=== PATIENT | male | born 1960 | race Caucasian/White ===

== ENCOUNTER 2019-11-23 15:54 | Emergency (ER) | payer MEDICARE, OTHER ==
[~2019-11-23] VITALS: Ht 185.4 cm; Wt 102.1 kg
[~2019-11-23 15:54] MED LIST: ATEN50TA PO; HYDR-3974 PO; LEVO500T2 PO; METR500T PO; PANT40SU PO
--- NOTE | 2019-11-23 16:18 | NUR ---
PT CLARISSA OSEI HOME TO ER BED W/ MULTIPLE COMPLAINTS. PER EMS PT CALLED 911 C/O CHEST PAIN W/ COUGH. ABDOMINAL PAIN W/ NAUSEA SINCE THIS MORNING. PLACED ON MONITOR. VSS. AWAITING MD CRUZ.
--- NOTE | 2019-11-23 16:19 | NUR ---
DR MEZA AT BEDSIDE FOR EVAL.
--- NOTE | 2019-11-23 16:20 | NUR ---
IV LINE STARTED BLOOD DRAWN AND SENT TO LAB.
[2019-11-23 16:28] LABS: BASOPHILS % (AUTO) 0.4 % (0.0-2.0); EOSINOPHILS % (AUTO) 0.1 % (0.0-6.0); HEMATOCRIT 49 % (39-51); HEMOGLOBIN 16.6 g/dL (13.5-17.5); LYMPHOCYTES % (AUTO) 8.8 % (20.0-44.0); MEAN CORPUSCULAR HGB CONC 34 g/dl (31.0-36.0); MEAN CORPUSCULAR VOLUME 93 fL (80-96); MONOCYTES # (AUTO) 0.5 /CMM (0.1-1.30); MONOCYTES % (AUTO) 4.2 % (2.0-12.0); NEUTROPHILS # (AUTO) 9.5 /CMM (1.8-8.9); NEUTROPHILS % (AUTO) 86.5 % (43.0-81.0); PLATELET COUNT (AUTO) 194 /CMM (150-450); RED BLOOD CELL COUNT(AUTO) 5.24 MIL/uL (4.5-6.0)
--- NOTE | 2019-11-23 16:28 | NUR ---
RADIOLOGY AT BEDSIDE FOR CHEST XRAY.
[2019-11-23] MEDS ORDERED: IV NS 0.9% 1,000 ML BAG IV ONE (16:30)
[2019-11-23] MEDS ORDERED: KETOROLAC TROMETHAMINE INJ 30 MG/ML VIAL IV ONE (16:30)
[2019-11-23] MEDS ORDERED: ONDANSETRON HCL/PF 4 MG/2 ML VIAL IVP ONE (16:30)
[2019-11-23] MEDS ORDERED: KETOROLAC TROMETHAMINE 15 MG/ML VIAL ONE (16:32)
[2019-11-23] MEDS ORDERED: ONDANSETRON HCL/PF 4 MG/2 ML VIAL ONE (16:33)
[2019-11-23 16:59] LABS: CALCIUM, SERUM 9.7 mg/dL (8.5-10.1); CARBON DIOXIDE 25 mmol/L (21-32); CHLORIDE 107 mmol/L (98-107); CREATININE 1.1 mg/dL (0.6-1.3); GLUCOSE 105 mg/dL (74-106); POTASSIUM 4.3 mmol/L (3.5-5.1); SODIUM SERUM 143 mmol/L (136-145); UREA NITROGEN, BLOOD 19 mg/dL (7-18)
[2019-11-23 17:05] LABS: ALANINE AMINOTRANSFERASE 36 U/L (12-78); ALKALINE PHOSPHATASE 132 U/L (46-116); ASPARTATE AMINOTRANSFERASE 29 U/L (15-37); BILIRUBIN,DIRECT 0.2 mg/dL (0.0-0.2); BILIRUBIN,TOTAL 1.2 mg/dL (0.2-1.0); TOTAL PROTEIN, SERUM 8.1 g/dL (6.4-8.2)
[2019-11-23 17:19] LABS: LIPASE 181 U/L (73-393)
--- NOTE | 2019-11-23 17:54 | NUR ---
PT TO RADIOLOGY FOR HEAD CT SCAN VIA [facility].
[2019-11-23] MEDS ORDERED: oxyCODONE/APAP (5/325 MG) 1 UDTAB TABLET ONE (17:57)
[2019-11-23] MEDS ORDERED: oxyCODONE/APAP (5/325 MG) 1 UDTAB TABLET PO ONE (18:00)
[2019-11-23 18:47] VITALS: BP 132/84
--- NOTE | 2019-11-23 18:47 | NUR ---
Patient discharged to home in stable condition. Written and verbal after care instructions given. Patient verbalizes understanding of instruction.IV removed. Catheter intact and site benign. Pressure and 4x4 applied to site. No bleeding noted.
[2019-11-24] MEDS ORDERED: ATOR10TA PO (11:23)
== END 2019-11-23 18:48 | disposition home or self-care (01) ==
LOC: ER 15:55
DX: J06.9 Acute upper respiratory infection, unspecified (principal); R51 Headache; I10 Essential (primary) hypertension; K21.9 Gastro-esophageal reflux disease without esophagitis; Z79.899 Other long term (current) drug therapy
CPT/HCPCS: 36415; 70450; 71045; 80048; 80076; 83690; 84484; 85025; 93005; 96374; 96375; 99285; J1885; J2405; J7030

== ENCOUNTER 2019-11-24 10:51 | Emergency (ER) | payer MEDICARE, OTHER ==
[~2019-11-24] VITALS: Ht 180.3 cm; Wt 97.5 kg
--- NOTE | 2019-11-24 10:54 | NUR ---
PARISA RA 860 From Home Cough/Nausea/vomit/diarrhea was seen yesterday for same" to ER bed 2, hooked to monitor, changed to hospital gown, provided w warm blanket, patient ao x 4, breathing even and unlabored, Dr Perrin at bedside
[2019-11-24] MEDS ORDERED: ONDANSETRON HCL/PF 4 MG/2 ML VIAL ONE (11:07)
[2019-11-24] MEDS ORDERED: ATOR10TA PO (11:23)
[2019-11-24] MEDS ORDERED: ONDANSETRON HCL/PF 4 MG/2 ML VIAL IVP ONE (11:30)
[2019-11-24] MEDS ORDERED: IV NS 0.9% 1,000 ML BAG IV ONE (11:30)
[2019-11-24 11:39] LABS: BASOPHILS % (AUTO) 0.2 % (0.0-2.0); EOSINOPHILS % (AUTO) 0.2 % (0.0-6.0); HEMATOCRIT 46 % (39-51); HEMOGLOBIN 15.7 g/dL (13.5-17.5); LYMPHOCYTES # (AUTO) 1.3 /CMM (0.8-4.8); LYMPHOCYTES % (AUTO) 17.2 % (20.0-44.0); MEAN CORPUSCULAR HGB CONC 34 g/dl (31.0-36.0); MEAN CORPUSCULAR VOLUME 93 fL (80-96); MONOCYTES # (AUTO) 0.7 /CMM (0.1-1.30); MONOCYTES % (AUTO) 8.9 % (2.0-12.0); NEUTROPHILS # (AUTO) 5.6 /CMM (1.8-8.9); NEUTROPHILS % (AUTO) 73.5 % (43.0-81.0); PLATELET COUNT (AUTO) 207 /CMM (150-450); RED BLOOD CELL COUNT(AUTO) 4.98 MIL/uL (4.5-6.0); WHITE BLOOD COUNT (AUTO) 7.7 K/uL (4.3-11.0)
[2019-11-24 11:51] LABS: ALBUMIN 3.6 g/dL (3.4-5.0); BILIRUBIN,DIRECT 0.3 mg/dL (0.0-0.2); BILIRUBIN,TOTAL 1.5 mg/dL (0.2-1.0); CALCIUM, SERUM 9.4 mg/dL (8.5-10.1); CREATININE 1.3 mg/dL (0.6-1.3); POTASSIUM 4.2 mmol/L (3.5-5.1); TOTAL PROTEIN, SERUM 7.7 g/dL (6.4-8.2)
--- NOTE | 2019-11-24 12:16 | NUR ---
patient ambulated with steady gait going to restroom.
--- NOTE | 2019-11-24 13:31 | NUR ---
IV removed. Catheter intact and site benign. Pressure and 4x4 applied to site. No bleeding noted.Patient discharged to home in stable condition. Written and verbal after care instructions given. Patient verbalizes understanding of instruction.
[2019-11-24 13:32] VITALS: BP 132/74
== END 2019-11-24 13:32 | disposition home or self-care (01) ==
LOC: ER 10:53
DX: R11.2 Nausea with vomiting, unspecified (principal); R19.7 Diarrhea, unspecified; R51 Headache; I10 Essential (primary) hypertension; Z60.2 Problems related to living alone; Z79.899 Other long term (current) drug therapy
CPT/HCPCS: 36415; 74176; 80048; 80076; 83690; 85025; 96361; 96374; 99284; J2405; J7030

== ENCOUNTER 2019-11-25 07:32 | Inpatient (IN) | payer MEDICARE, OTHER ==
[~2019-11-25] VITALS: Ht 188 cm; Wt 104.3 kg
[~2019-11-25 07:32] MED LIST changes: +ATOR10TA PO; -HYDR-3974 PO; -LEVO500T2 PO; -METR500T PO; -PANT40SU PO
--- NOTE | 2019-11-25 07:49 | NUR ---
DR DOMINGUEZ AT BEDSIDE FOR EVAL.
[2019-11-25] MEDS ORDERED: IV NS 0.9% 500 ML BAG IV ONE (08:00)
--- NOTE | 2019-11-25 08:11 | NUR ---
LINE STARTED ON R FA G 20, BLOOD AND CULTURES DRAWN FROM LINE AND SENT TO LAB
--- NOTE | 2019-11-25 08:18 | NUR ---
RADIOLOGY AT BEDSIDE FOR CHEST XRAY.
[2019-11-25 08:55] LABS: BASOPHILS % (AUTO) 0.5 % (0.0-2.0); EOSINOPHILS % (AUTO) 0.4 % (0.0-6.0); HEMATOCRIT 45 % (39-51); HEMOGLOBIN 15.1 g/dL (13.5-17.5); LYMPHOCYTES # (AUTO) 1.2 /CMM (0.8-4.8); LYMPHOCYTES % (AUTO) 18.2 % (20.0-44.0); MEAN CORPUSCULAR HGB CONC 34 g/dl (31.0-36.0); MEAN CORPUSCULAR VOLUME 93 fL (80-96); MONOCYTES # (AUTO) 0.5 /CMM (0.1-1.30); MONOCYTES % (AUTO) 7.9 % (2.0-12.0); NEUTROPHILS # (AUTO) 4.9 /CMM (1.8-8.9); PLATELET COUNT (AUTO) 191 /CMM (150-450); RED BLOOD CELL COUNT(AUTO) 4.78 MIL/uL (4.5-6.0); WHITE BLOOD COUNT (AUTO) 6.7 K/uL (4.3-11.0)
[2019-11-25 09:03] LABS: CALCIUM, SERUM 8.7 mg/dL (8.5-10.1); POTASSIUM 4.1 mmol/L (3.5-5.1)
--- NOTE | 2019-11-25 09:15 | NUR ---
PAGED [facility].
--- NOTE | 2019-11-25 09:42 | NUR ---
CALLED NURSING SUP FOR M/S BED.
--- NOTE | 2019-11-25 09:45 | NUR ---
PT GAVE CAREGIVER YESSI #[phone].
--- NOTE | 2019-11-25 09:57 | NUR ---
NURSING SUP GAVE M/S BED 106. NURSE NAME CRISTY.
--- NOTE | 2019-11-25 10:12 | NUR ---
REPORT GIVEN TO CRISTY KOVACS. AWAITING TRANSFER TO FLOOR.
[2019-11-25] MEDS ORDERED: IV 1/2NS 1000 ML 1,000 ML IV PRN (10:30)
[2019-11-25] MEDS ORDERED: ONDANSETRON HCL/PF 4 MG/2 ML VIAL IM PRN (10:30)
[2019-11-25 12:00] VITALS: BP 124/78
[2019-11-25 12:41] LABS: CREATINE KINASE, TOTAL 142 U/L (39-308); FERRITIN 465 ng/mL (8-388)
[2019-11-25 12:56] LABS: C-REACTIVE PROTEIN 1.3 mg/dL (0.0-0.9)
--- NOTE | 2019-11-25 13:00 | NUR ---
RN ADMITTING NOTE: RECEIVED PATIENT FROM ER THIS MORNING AT 1140. PATIENT CAME IN WITH C/O SEVERE NAUSEA AND COUGH FOR 1.5 MONTHS. UPON FACE TO FACE ASSESSMENT, PATIENT IS ALERT AND ORIENTED X4, RESPONDS APPROPRIATELY. PATIENT ON ROOM AIR, SATING 98%, NO SIGNS OF RESPIRATORY DISTRESS NOTED. NO SIGNS OF ACUTE DISTRESS NOTED. VSS. LUNGS CLEAR TO AUSCULTATION IN ALL LOBES. NO EDEMA PRESENT. NO COMPLAINTS OF PAIN. #20 ON RFA, FLUSHING WELL, SITE C/D/I, NO SIGNS OF COMPLICATIONS NOTED. CONTACT ISOLATION TO R/O COVID. PATIENT IS REFUSING IVF. SKIN INTACT. PATIENT IS AMBULATORY, STEADY GAIT. NO C/O BURNING URINATION/ CONSTIPATION/ DIARRHEA. DENIES SI/HI AT THIS TIME. PATIENT HAS RECENTLY RECEIVED HIS PNA/FLU VACCINE IN JULY 2019. PATIENT CURRENTLY HAS A DRY, NON-PRODUCTIVE COUGH. NO COMPLAINTS OF NAUSEA AT THIS TIME. MED RECON COMPLETE. DR CHIANG AWARE OF PATIENT'S ADMISSION WITH ADMITTING ORDERS. PATIENT HAS NKA AND IS FULL CODE. FAMILY AWARE OF PATIENT'S ADMISSION. SAFETY MEASURES IMPLEMENTED, BED IN LOWEST POSITION, LOCKED, SIDE RAILS UP X2, CALL LIGHT WITHIN REACH. WILL CONTINUE TO MONITOR PATIENT FOR CHANGES.
--- NOTE | 2019-11-25 14:57 | NUR ---
DR CHIANG AWARE THAT PATIENT HAS REFUSED IVF, WILL ENCOURAGE PO FLUIDS. ALSO NOTIFIED HER TO COMPLETE MED RECON.
[2019-11-25 16:00] VITALS: BP 117/76
[2019-11-25] MEDS ORDERED: ACETAMINOPHEN 325 MG TABLET PO PRN (17:00)
[2019-11-25] MEDS: ACETAMINOPHEN 325 MG TABLET PO PRN (17:15)
--- NOTE | 2019-11-25 18:52 | NUR ---
RN CLOSING NOTE: PATIENT IS CURRENTLY RESTING IN ROOM. NO SIGNS OF RESPIRATORY DISTRESS NOTED. NO SIGNS OF ACUTE DISTRESS NOTED. VSS. CONTACT ISOLATION TO R/O COVID. PATIENT CONTINUES TO REFUSE IVF, ORAL LIQUIDS ENCOURAGED. SAFETY MEASURES IMPLEMENTED, BED IN LOWEST POSITION, LOCKED, SIDE RAILS UP X2, CALL LIGHT WITHIN REACH. WILL ENDORSE TO ONCOMING SHIFT RN FOR CONTINUITY OF CARE.
--- NOTE | 2019-11-25 19:11 | NUR ---
RN: RECEIVED PATIENT Patient in bed, awake. 98% on room air, tolerating well. Per an RN patient not keeping NC in place. No cough, appears comfortable in bed. Cruz cath to gravity, denies pain. Fall precaution maintained. Addendum: 11/25/19 at 2002 by BELÉN LEONARD RN WRONG ENTRY ABOVE PLEASE DISREGARD RECEIVED PATIENT NOTES.
--- NOTE | 2019-11-25 19:12 | NUR ---
MS RN: RECEIVED PATIENT Patient in bed, awake. Tolerating room air, Oxygen sat 98%, denies SOB. IVF not infusing, per am RN report patient refused. Encouraged patient to have IVF as ordered by MD. education provided, patient declined. Contact/Droplet precaution, PPE utilized. Patient refused to apply surgical mask as ordered, education provided, declined education. Denies pain, wants to sleep and Nurse to leave. SInus rhythm iin the Tele monitor.
[2019-11-25 20:10] VITALS: BP 125/75
[2019-11-26 00:07] VITALS: BP 113/59
--- NOTE | 2019-11-26 03:42 | NUR ---
DRY COUGH, SOB Patient ambulates to the bathroom, c/o SOB with dry cough. Oxygen sat 97% on room air. Denies chest pain, no c/o nausea, no vomiting. Sinus Tach HR 140's during ambulation, immediately improved when moved back to bed Sinus rhythm HR 81. Feels OK when back to bed, maintained safety.
[2019-11-26 04:10] VITALS: BP 134/93
[2019-11-26] MEDS: ACETAMINOPHEN 325 MG TABLET PO PRN ×2 (05:16→14:48)
--- NOTE | 2019-11-26 05:23 | NUR ---
GENERALIZED BODY PAIN Patient c/o body pain generalized, denies nausea no vomiting. Given PRN Tylenol, will reassess.
--- NOTE | 2019-11-26 06:26 | NUR ---
PAIN REASSESSMENT Patient reports pain improved with PRN Tylenol.
[2019-11-26 06:27] LABS: ALBUMIN 3.5 g/dL (3.4-5.0); BILIRUBIN,TOTAL 1.5 mg/dL (0.2-1.0); CALCIUM, SERUM 8.9 mg/dL (8.5-10.1); POTASSIUM 3.6 mmol/L (3.5-5.1); TOTAL PROTEIN, SERUM 7.1 g/dL (6.4-8.2)
--- NOTE | 2019-11-26 06:32 | NUR ---
MS RN: END OF SHIFT REPORT Patient in bed, Sinus Rhythm in the Tele monitor. Patient is non compliant with treatment, refused IVF infusion. Intermittent dry cough, shortness of breath improved with resting in bed. Oxygen sat 98% on room air. Influenza A,B Respiratory panel, Novel marin virus pending result. Contact, Droplet precaution, PPE utilized.
[2019-11-26 06:38] LABS: BASOPHILS % (AUTO) 0.2 % (0.0-2.0); EOSINOPHILS % (AUTO) 1.6 % (0.0-6.0); HEMATOCRIT 46 % (39-51); HEMOGLOBIN 15.3 g/dL (13.5-17.5); LYMPHOCYTES # (AUTO) 1.6 /CMM (0.8-4.8); LYMPHOCYTES % (AUTO) 21.6 % (20.0-44.0); MEAN CORPUSCULAR HGB CONC 34 g/dl (31.0-36.0); MEAN CORPUSCULAR VOLUME 93 fL (80-96); MONOCYTES # (AUTO) 0.6 /CMM (0.1-1.30); MONOCYTES % (AUTO) 8.3 % (2.0-12.0); NEUTROPHILS # (AUTO) 5.1 /CMM (1.8-8.9); NEUTROPHILS % (AUTO) 68.3 % (43.0-81.0); PLATELET COUNT (AUTO) 184 /CMM (150-450); RED BLOOD CELL COUNT(AUTO) 4.92 MIL/uL (4.5-6.0); WHITE BLOOD COUNT (AUTO) 7.5 K/uL (4.3-11.0)
--- NOTE | 2019-11-26 07:44 | NUR ---
RN OPENING NOTES RECEIVED PATIENT RESTING IN BED COMFORTABLY, NO S/SX OF DISTRESS AT THIS TIME. PT BECOMES SOB DURING PT ACTIVITY BUT IMPROVES WITH REST. HE IS AOX4, VERBAL, AND AMBULATORY . HE IS ON RA, TOLERATING WELL. ISOLATION PRECAUTIONS HAVE BEEN IMPLEMENTED, RULE OUT COVID. TELE MONITOR SHOWING SR ST. SKIN IS INTACT. RFA 2O G IS INTACT AND PATENT, PT REFUSED IVF, SAFETY MEASURES HAVE BEEN IMPLEMENTED, CALL LIGHT IS WITHIN REACH, BED IS IN LOWEST AND LOCKED POSITION, SIDE RAILS UP X2, WILL CONTINUE TO MONITOR FOR ANY CHANGES.
[2019-11-26 08:00] VITALS: BP 146/90
--- NOTE | 2019-11-26 10:36 | NUR ---
RN NOTES PATIENT HAS REMOVED HIS IV LINE. HE CONTINUES TO REFUSE IV FLUIDS, MD AWARE. WILL CONTINUE TO MONITOR FOR ANY CHANGES.
[2019-11-26 16:00] VITALS: BP 118/79
--- NOTE | 2019-11-26 18:55 | NUR ---
RN CLOSING NOTES PATIENT IS RESTING IN BED COMFORTABLY AT THIS TIME, NO S/SX OF DISTRESS PRESENT. HE IS ON RA, TOLERATING WELL. PT NEEDS HAVE BEEN MET, VITAL SIGNS ARE STABLE, NO ACUTE CHANGES OCCURRED THROUGHOUT THE SHIFT. SAFETY MEASURES HAVE BEEN IMPLEMENTED, CALL LIGHT IS WITHIN REACH, BED IS IN LOWEST AND LOCKED POSITION, SIDE RAILS UP X2, WILL ENDORSE TO NIGHTSHIFT RN FOR LEA. Addendum: 11/26/19 at 1858 by LEE ARGUETA RN CONTACT AND DROPLET ISO HAS BEEN IMPLEMENTED AND ENFORCED FOR RULE OUT COVID
--- NOTE | 2019-11-26 19:10 | NUR ---
PT HAS BEEN ENDORSED FOR LEA
--- NOTE | 2019-11-26 19:30 | NUR ---
RN OPENING NOTES RECEIVED PATIENT RESTING IN BED, A/OX4, ABLE TO MAKE NEEDS KNOWN AND AMBULATORY. ON RA, TOLERATING WELL, NO SOB OR ANY DISTRESS NOTED. ON TELE MONITOR SR WITH HR 90'S. PATIENT HAS NO IV SITE, REFUSED IV INSERTION DESPITE DISCUSSION OF RISKS AND BENEFITS AND STATED "LEAVE ME ALONE, I JUST WANT TO SLEEP" SAFETY MEASURES AND ISOLATION PRECAUTIONS IN PLACE; CALL LIGHT WITHIN REACH, BED IS IN LOWEST AND LOCKED POSITION, SIDE RAILS UP X2. WILL CONTINUE TO MONITOR FOR ANY CHANGES.
[2019-11-26 20:00] VITALS: BP 114/79
[2019-11-27] VITALS: BP 129/82
--- NOTE | 2019-11-27 | NUR ---
RN NOTES PATIENT ROUNDING DONE, NO ACUTE DISTRESS NOTED. WILL CONT TO MONITOR.
[2019-11-27 04:00] VITALS: BP 115/62
[2019-11-27] MEDS: ACETAMINOPHEN 325 MG TABLET PO PRN (05:00)
--- NOTE | 2019-11-27 06:43 | NUR ---
RN CLOSING NOTES PATIENT RESTING IN BED, NO ACUTE CHANGES THROUGHOUT SHIFT. PATIENT A/OX4, ABLE TO MAKE NEEDS KNOWN AND AMBULATORY. ON RA, TOLERATING WELL, NO SOB OR ANY DISTRESS NOTED. ON TELE MONITOR SR-ST WITH HR 80'S. SAFETY MEASURES AND ISOLATION PRECAUTIONS MAINTAINED. WILL CONTINUE TO MONITOR. WILL ENDORSE TO AM RN FOR LEA.
--- NOTE | 2019-11-27 07:29 | NUR ---
rn notes patient received on room air, no sob noted, patient denies pain at this time. A/O x4 and remains on tele monitoring. Negative for COVID 19 test. Awaiting SNF placement at this time. Bed at the lowest setting, call light within reach, side rails up x2.
[2019-11-27 08:00] VITALS: BP_SYST 118; BP_SYST 135; BP_DIAS 58; BP_DIAS 81
[2019-11-27] MEDS ORDERED: ATORVASTATIN 10 MG TABLET PO SCH (09:00)
[2019-11-27] MEDS ORDERED: ATENOLOL 50 MG TABLET PO SCH (09:00)
[2019-11-27 09:31] LABS: BASOPHILS % (AUTO) 0.2 % (0.0-2.0); EOSINOPHILS % (AUTO) 0.8 % (0.0-6.0); HEMATOCRIT 47 % (39-51); HEMOGLOBIN 15.9 g/dL (13.5-17.5); LYMPHOCYTES # (AUTO) 1.5 /CMM (0.8-4.8); LYMPHOCYTES % (AUTO) 21.9 % (20.0-44.0); MEAN CORPUSCULAR HGB CONC 34 g/dl (31.0-36.0); MEAN CORPUSCULAR VOLUME 93 fL (80-96); MONOCYTES # (AUTO) 0.4 /CMM (0.1-1.30); NEUTROPHILS # (AUTO) 4.7 /CMM (1.8-8.9); NEUTROPHILS % (AUTO) 71.1 % (43.0-81.0); PLATELET COUNT (AUTO) 213 /CMM (150-450); WHITE BLOOD COUNT (AUTO) 6.6 K/uL (4.3-11.0)
[2019-11-27 09:48] LABS: CALCIUM, SERUM 9.1 mg/dL (8.5-10.1); CREATININE 1.1 mg/dL (0.6-1.3); PHOSPHORUS 2.6 mg/dL (2.5-4.9); POTASSIUM 3.7 mmol/L (3.5-5.1)
--- NOTE | 2019-11-27 10:08 | NUR ---
rn notes LEA given to Arlene KOVACS
--- NOTE | 2019-11-27 10:10 | NUR ---
RN OPENING NOTE: TAKING OVER PATIENT OF BETHANIE ARZOLA MID SHIFT. RECEIVED REPORT. PATIENT IS AWAKE, ALERT AND ORIENTED X4, RESPONDS APPROPRIATELY. NO SIGNS OF RESPIRATORY DISTRESS NOTED. SATING WELL. NO SIGNS OF ACUTE DISTRESS NOTED. PATIENT HAS NO COMPLAINTS AT THIS TIME. PATIENT IS AMBULATORY AND INDEPENDENT WITH DAILY NEEDS. ON CONTACT ISOLATION FOR R/O INFLUENZA. SAFETY MEASURES IMPLEMENTED, BED IN LOWEST POSITION, LOCKED, SIDE RAILS UP X2, CALL LIGHT WITHIN REACH. WILL CONTINUE TO MONITOR PATIENT FOR CHANGES.
--- NOTE | 2019-11-27 13:29 | NUR ---
pending discharge,pt requesting snf per md awaits cm ,nursing sup aware.
[2019-11-27 16:00] VITALS: BP 126/84
[2019-11-27 16:27] VITALS: BP 126/84
--- NOTE | 2019-11-27 18:26 | NUR ---
PIPE CUTTER NOTE: PATIENT WAS DC TO [facility]. UPON DISCHARGE ASSESSMENT, PATIENT WAS CALM AND COOPERATIVE WITH PLAN OF CARE. VSS. NO RESPIRATORY DISTRESS NOTED. NO ACUTE DISTRESS NOTED. SKIN INTACT. DISCHARGE PAPERWORK SIGNED. REPORT GIVEN TO SNF AND TRANSPORTATION UPON ARRIVAL. PATIENT LEFT [facility] AT 1810 VIA TRANSPORTATION ON [facility].
== END 2019-11-27 18:18 | DRG 865 ==
LOC: ER 07:35 → MEDSG1 10:03 → TELE1 20:26 → MEDSG1 11-27 08:15
PROVIDERS: ADMIT Student in an Organized Health Care Education/Training Program; ATTEND Internal Medicine
DX: B34.9 Viral infection, unspecified (principal); N17.0 Acute kidney failure with tubular necrosis; J98.11 Atelectasis; E86.0 Dehydration; Z79.899 Other long term (current) drug therapy; I10 Essential (primary) hypertension; Z87.19 Personal history of other diseases of the digestive system; R26.9 Unspecified abnormalities of gait and mobility
CPT/HCPCS: 36415; 71045-TC; 71046; 80048-TC; 80053-TC; 82550-TC; 82728-TC; 83735-TC; 84100-TC; 84484-TC; 85025-TC; 85378-TC; 86140-TC; 87040-TC; 87081-TC; G0378; J3490; J7040

== ENCOUNTER 2019-12-15 16:53 | Emergency (ER) | payer MEDICARE, OTHER ==
[~2019-12-15] VITALS: Ht 188 cm; Wt 95.3 kg
[2019-12-15] MEDS ORDERED: IV NS 0.9% 1,000 ML BAG IV ONE (17:30)
[2019-12-15] MEDS ORDERED: ONDANSETRON HCL/PF 4 MG/2 ML VIAL IVP ONE (17:30)
[2019-12-15] MEDS ORDERED: ONDANSETRON HCL/PF 4 MG/2 ML VIAL ONE (17:31)
[2019-12-15 17:33] LABS: BASOPHILS % (AUTO) 0.3 % (0.0-2.0); EOSINOPHILS % (AUTO) 0.2 % (0.0-6.0); HEMATOCRIT 48 % (39-51); LYMPHOCYTES # (AUTO) 1.3 /CMM (0.8-4.8); LYMPHOCYTES % (AUTO) 26.4 % (20.0-44.0); MEAN CORPUSCULAR HGB CONC 34 g/dl (31.0-36.0); MEAN CORPUSCULAR VOLUME 93 fL (80-96); MONOCYTES # (AUTO) 0.9 /CMM (0.1-1.30); MONOCYTES % (AUTO) 18.3 % (2.0-12.0); NEUTROPHILS # (AUTO) 2.7 /CMM (1.8-8.9); NEUTROPHILS % (AUTO) 54.8 % (43.0-81.0); PLATELET COUNT (AUTO) 205 /CMM (150-450); RED BLOOD CELL COUNT(AUTO) 5.11 MIL/uL (4.5-6.0)
--- NOTE | 2019-12-15 17:38 | NUR ---
pt rec'd to er via ems pt was here 2 weeks ago ffor a cough neg for covid . today c/o pain and n/v weakness. iv started 18g rt ac labs and ua sent to lab . AWAITING EVALUATION BY ER PROVIDER.
--- NOTE | 2019-12-15 17:39 | NUR ---
iv bolus n.s and zofran 4 mg ivp now per md order vss sent to ct
[2019-12-15 17:45] LABS: ALBUMIN 3.7 g/dL (3.4-5.0); BILIRUBIN,DIRECT 0.2 mg/dL (0.0-0.2); BILIRUBIN,TOTAL 0.8 mg/dL (0.2-1.0); POTASSIUM 3.7 mmol/L (3.5-5.1)
[2019-12-15 17:50] LABS: CALCIUM, SERUM 9.1 mg/dL (8.5-10.1)
[2019-12-15 18:00] LABS: THYROID STIMULATING HORMONE 1.748 uIU/mL (0.358-3.74)
[2019-12-15] MEDS ORDERED: IBUPROFEN 400 MG TABLET PO ONE (18:30)
[2019-12-15] MEDS ORDERED: IBUPROFEN 400 MG TABLET ONE (18:32)
--- NOTE | 2019-12-15 18:54 | NUR ---
C/O BACK PAIN MOTRIN 800 MG PO NOW
--- NOTE | 2019-12-15 19:25 | NUR ---
REPORT RECEIVED FROM BETHANIE MARSHALL
[2019-12-15 19:35] VITALS: BP 137/84
--- NOTE | 2019-12-15 19:35 | NUR ---
Patient discharged to home in stable condition. Written and verbal after care instructions given. Patient verbalizes understanding of instruction.IV removed. Catheter intact and site benign. Pressure and 4x4 applied to site. No bleeding noted.PT ambulatory with a steady gait
[2019-12-15 19:58] LABS: BAND % (MANUAL) 1 % (0.0-5.0); LYMPHOCYTES % (MANUAL) 24 % (16-48); MONOCYTES % (MANUAL) 10 % (0-11.0); NEUTROPHILS % (MANUAL) 63 (42-76); REACTIVE LYMPHOCYTES 2 % (0-0)
== END 2019-12-15 19:36 | disposition home or self-care (01) ==
LOC: ER 17:05
DX: N20.0 Calculus of kidney (principal); R53.1 Weakness; R11.10 Vomiting, unspecified; I10 Essential (primary) hypertension; G89.29 Other chronic pain; R51 Headache; Z60.2 Problems related to living alone; Z79.899 Other long term (current) drug therapy
CPT/HCPCS: 36415; 71045; 74176; 80048; 80076; 82550; 83690; 84443; 85025; 99285; J2405; J7030

== ENCOUNTER 2019-12-19 07:54 | Emergency (ER) | payer MEDICARE, OTHER ==
[~2019-12-19] VITALS: Ht 188 cm; Wt 95.7 kg
--- NOTE | 2019-12-19 08:19 | NUR ---
SEEN AND EVALUATED BY DR RICE. DISCHARGE HOME IN STABLE CONDITION.
[2019-12-19 08:21] VITALS: BP 121/74
== END 2019-12-19 08:21 | disposition home or self-care (01) ==
LOC: ER 08:02
DX: R51 Headache (principal); I10 Essential (primary) hypertension; K21.9 Gastro-esophageal reflux disease without esophagitis; Z60.2 Problems related to living alone; Z79.899 Other long term (current) drug therapy

== ENCOUNTER 2020-06-28 01:48 | Emergency (ER) | payer MEDICARE, MEDICAID ==
[~2020-06-28] VITALS: Ht 188 cm; Wt 90.7 kg
--- NOTE | 2020-06-28 01:22 | NUR ---
PT TO ER BED 3 BIB RA FROM HOME C/O NON-RADIATING SUBSTERNAL CHEST PAIN SINCE 0000 OF TODAY. RECEIVED 1 SPRAY OF NITRO IN THE AMBULANCE RIG. PATIENT IS AAOX4. NO SOB .BREATHING EVENLY AND UNLABORED ON ROOM AIR. CONNECTED TO MONITOR.
--- NOTE | 2020-06-28 01:45 | NUR ---
XRAY AT BEDSIDE
[~2020-06-28 01:48] MED LIST changes: +ONDANSETRON HCL/PF 4 MG/2 ML VIAL IVP ONE; +ONDANSETRON HCL/PF 4 MG/2 ML VIAL ONE
[2020-06-28 02:04] LABS: BASOPHILS % (AUTO) 0.4 % (0.0-2.0); EOSINOPHILS % (AUTO) 0.9 % (0.0-6.0); HEMATOCRIT 53 % (39-51); HEMOGLOBIN 17.8 g/dL (13.5-17.5); LYMPHOCYTES # (AUTO) 2.9 /CMM (0.8-4.8); LYMPHOCYTES % (AUTO) 35.5 % (20.0-44.0); MEAN CORPUSCULAR HGB CONC 34 g/dl (31.0-36.0); MEAN CORPUSCULAR VOLUME 91 fL (80-96); MONOCYTES # (AUTO) 0.7 /CMM (0.1-1.30); MONOCYTES % (AUTO) 8.5 % (2.0-12.0); NEUTROPHILS # (AUTO) 4.4 /CMM (1.8-8.9); NEUTROPHILS % (AUTO) 54.7 % (43.0-81.0); PLATELET COUNT (AUTO) 240 /CMM (150-450); RED BLOOD CELL COUNT(AUTO) 5.82 MIL/uL (4.5-6.0); WHITE BLOOD COUNT (AUTO) 8.1 K/uL (4.3-11.0)
[2020-06-28 02:16] LABS: CALCIUM, SERUM 9.6 mg/dL (8.5-10.1); CARBON DIOXIDE 32 mmol/L (21-32); CHLORIDE 101 mmol/L (98-107); GLUCOSE 92 mg/dL (74-106); POTASSIUM 3.5 mmol/L (3.5-5.1); SODIUM SERUM 141 mmol/L (136-145); UREA NITROGEN, BLOOD 19 mg/dL (7-18)
[2020-06-28 02:22] LABS: ALANINE AMINOTRANSFERASE 39 U/L (12-78); ALBUMIN 3.9 g/dL (3.4-5.0); ALKALINE PHOSPHATASE 114 U/L (46-116); ASPARTATE AMINOTRANSFERASE 24 U/L (15-37); BILIRUBIN,DIRECT 0.1 mg/dL (0.0-0.2); BILIRUBIN,TOTAL 0.5 mg/dL (0.2-1.0); TOTAL PROTEIN, SERUM 8.3 g/dL (6.4-8.2)
[2020-06-28] MEDS ORDERED: MORPHINE SULFATE INJ 10 MG/ML DISP.SYRIN IV ONE (02:30)
[2020-06-28] MEDS ORDERED: MORPHINE SULFATE INJ 4 MG/ML DISP.SYRIN ONE (02:44)
--- NOTE | 2020-06-28 06:11 | NUR ---
IV removed. Catheter intact and site benign. Pressure and 4x4 applied to site. No bleeding noted.
[2020-06-28 06:24] VITALS: BP 132/76
--- NOTE | 2020-06-28 06:24 | NUR ---
Patient discharged to home in stable condition. Written and verbal after care instructions given. Patient verbalizes understanding of instruction.
== END 2020-06-28 06:24 | disposition home or self-care (01) ==
LOC: ER 06:24
DX: R07.89 Other chest pain (principal); R11.2 Nausea with vomiting, unspecified; I10 Essential (primary) hypertension; K21.9 Gastro-esophageal reflux disease without esophagitis; Z60.2 Problems related to living alone; Z79.899 Other long term (current) drug therapy
CPT/HCPCS: 36415; 71045; 80048; 80076; 83690; 84484 ×2; 85025; 93005; 96374; 96375; 99285; J2270; J2405

== ENCOUNTER 2020-10-25 01:32 | Emergency (ER) | payer MEDICARE, OTHER ==
[~2020-10-25] VITALS: Ht 188 cm; Wt 90.7 kg
[~2020-10-25 01:32] MED LIST changes: -ONDANSETRON HCL/PF 4 MG/2 ML VIAL IVP ONE; -ONDANSETRON HCL/PF 4 MG/2 ML VIAL ONE
--- NOTE | 2020-10-25 01:48 | NUR ---
URINE COLLECTED AND SENT TO THE LAB.
[2020-10-25] MEDS ORDERED: ONDANSETRON HCL/PF 4 MG/2 ML VIAL ONE (01:51)
[2020-10-25] MEDS ORDERED: ONDANSETRON HCL/PF 4 MG/2 ML VIAL IVP ONE (02:00)
[2020-10-25] MEDS ORDERED: IV NS 0.9% 1,000 ML BAG IV ONE (02:00)
--- NOTE | 2020-10-25 02:03 | NUR ---
PATIENT'S BLOOD COLLECTED AND SENT TO THE LAB.
[2020-10-25 02:19] LABS: BILIRUBIN,URINE NEGATIVE (NEGATIVE); COLOR,URINE YELLOW (YELLOW); LEUKOCYTE ESTERASE ,URINE NEGATIVE (NEGATIVE); NITRITE, URINE NEGATIVE (NEGATIVE); PROTEIN,URINE NEGATIVE (NEGATIVE); UGLUCOSE NEGATIVE (NEGATIVE); UROBILINOGEN,URINE 0.2 EU/dL (0.2)
[2020-10-25 02:20] LABS: BASOPHILS # (AUTO) 0.3 /CMM (0.0-0.2); BASOPHILS % (AUTO) 3.9 % (0.0-2.0); EOSINOPHILS % (AUTO) 0.6 % (0.0-6.0); HEMATOCRIT 50 % (39-51); HEMOGLOBIN 16.9 g/dL (13.5-17.5); LYMPHOCYTES # (AUTO) 1.8 /CMM (0.8-4.8); LYMPHOCYTES % (AUTO) 21.4 % (20.0-44.0); MEAN CORPUSCULAR HGB CONC 34 g/dl (31.0-36.0); MEAN CORPUSCULAR VOLUME 89 fL (80-96); MONOCYTES # (AUTO) 0.2 /CMM (0.1-1.30); MONOCYTES % (AUTO) 2.8 % (2.0-12.0); NEUTROPHILS # (AUTO) 6.1 /CMM (1.8-8.9); NEUTROPHILS % (AUTO) 71.3 % (43.0-81.0); PLATELET COUNT (AUTO) 227 /CMM (150-450); RED BLOOD CELL COUNT(AUTO) 5.56 MIL/uL (4.5-6.0); WHITE BLOOD COUNT (AUTO) 8.5 K/uL (4.3-11.0)
[2020-10-25 02:27] LABS: CALCIUM, SERUM 9.2 mg/dL (8.5-10.1); CARBON DIOXIDE 31 mmol/L (21-32); CHLORIDE 103 mmol/L (98-107); GLUCOSE 106 mg/dL (74-106); POTASSIUM 3.6 mmol/L (3.5-5.1); SODIUM SERUM 140 mmol/L (136-145); UREA NITROGEN, BLOOD 18 mg/dL (7-18)
--- NOTE | 2020-10-25 02:28 | NUR ---
returned from ct
[2020-10-25 02:31] LABS: BACTERIA,URINE None seen /HPF (None Seen); MUCUS,URINE Few /LPF (None Seen); SQUAMOUS EPITHELIAL CELL,UR Few /HPF (None Seen); WBC,URINE 0-2 /HPF (0-3)
[2020-10-25 02:33] LABS: ALANINE AMINOTRANSFERASE 35 U/L (12-78); ALBUMIN 3.8 g/dL (3.4-5.0); ALKALINE PHOSPHATASE 115 U/L (46-116); ASPARTATE AMINOTRANSFERASE 21 U/L (15-37); BILIRUBIN,DIRECT 0.2 mg/dL (0.0-0.2); BILIRUBIN,TOTAL 0.8 mg/dL (0.2-1.0); LIPASE 247 U/L (73-393); TOTAL PROTEIN, SERUM 8.3 g/dL (6.4-8.2)
[2020-10-25] MEDS ORDERED: KETOROLAC TROMETHAMINE INJ 30 MG/ML VIAL ONE (03:22)
[2020-10-25] MEDS ORDERED: HYDROCODONE/APAP 10/325MG TABLET ONE (03:22)
[2020-10-25] MEDS ORDERED: KETOROLAC TROMETHAMINE INJ 30 MG/ML VIAL IV ONE (03:30)
[2020-10-25] MEDS ORDERED: HYDROCODONE/APAP 10/325MG TABLET PO ONE (03:30)
--- NOTE | 2020-10-25 03:41 | NUR ---
IV removed. Catheter intact and site benign. Pressure and 4x4 applied to site. No bleeding noted.
--- NOTE | 2020-10-25 03:41 | NUR ---
Patient discharged to home in stable condition. Written and verbal after care instructions given. Patient verbalizes understanding of instruction.
[2020-10-25 03:42] VITALS: BP 144/78
== END 2020-10-25 03:43 | disposition home or self-care (01) ==
LOC: ER 01:34
DX: N20.0 Calculus of kidney (principal); M79.3 Panniculitis, unspecified; R11.2 Nausea with vomiting, unspecified; I10 Essential (primary) hypertension; K21.9 Gastro-esophageal reflux disease without esophagitis; Z60.2 Problems related to living alone; Z79.899 Other long term (current) drug therapy
CPT/HCPCS: 36415; 74176; 80048; 80076; 80320; 81001; 83690; 84484; 85025; 87086; 93005; 96361; 96374; 96375; 99285; J1885; J2405; J7030; G0480

== ENCOUNTER 2021-04-12 01:14 | Emergency (ER) | payer OTHER ==
[~2021-04-12] VITALS: Ht 188 cm; Wt 96.6 kg
[2021-04-12] MEDS ORDERED: diphenhydrAMINE HCL 50 MG/ML VIAL ONE (01:26)
[2021-04-12] MEDS ORDERED: METOCLOPRAMIDE HCL 10 MG/2 ML VIAL ONE (01:26)
[2021-04-12] MEDS ORDERED: KETOROLAC TROMETHAMINE 15 MG/ML VIAL ONE (01:26)
--- NOTE | 2021-04-12 01:28 | NUR ---
BIBRA FROM HOME FOR C/O H/A AND NAUSEA SINCE 12MN. ALSO REPORTED COUGH. -FEVER OR CHILLS. VACCINATED FOR COVID 19 TWO MONTHS AGO. PT AMBULATORY , WAS ASSISTED TO TBED 7 ER AND WAS PLACED ON A MONITOR.VSS. WILL CONT TO MONITOR,
[2021-04-12] MEDS ORDERED: KETOROLAC TROMETHAMINE INJ 30 MG/ML VIAL IV ONE (01:30)
[2021-04-12] MEDS ORDERED: diphenhydrAMINE HCL 50 MG/ML VIAL IV ONE (01:30)
[2021-04-12] MEDS ORDERED: METOCLOPRAMIDE HCL 10 MG/2 ML VIAL IV ONE (01:30)
--- NOTE | 2021-04-12 01:43 | NUR ---
XRAY AT BEDSIDE
[2021-04-12 02:02] LABS: BASOPHILS % (AUTO) 0.4 % (0.0-2.0); EOSINOPHILS % (AUTO) 0.7 % (0.0-6.0); HEMATOCRIT 51 % (39-51); HEMOGLOBIN 17.5 g/dL (13.5-17.5); LYMPHOCYTES # (AUTO) 3.5 K/uL (0.8-4.8); LYMPHOCYTES % (AUTO) 39.5 % (20.0-44.0); MEAN CORPUSCULAR HGB CONC 35 g/dl (31.0-36.0); MEAN CORPUSCULAR VOLUME 91 fL (80-96); MONOCYTES # (AUTO) 0.7 K/uL (0.1-1.30); MONOCYTES % (AUTO) 8.4 % (2.0-12.0); NEUTROPHILS # (AUTO) 4.5 K/uL (1.8-8.9); PLATELET COUNT (AUTO) 232 K/uL (150-450); RED BLOOD CELL COUNT(AUTO) 5.57 MIL/uL (4.5-6.0); WHITE BLOOD COUNT (AUTO) 8.8 K/uL (4.3-11.0)
[2021-04-12 02:08] LABS: CALCIUM, SERUM 8.9 mg/dL (8.5-10.1); CARBON DIOXIDE 28 mmol/L (21-32); CHLORIDE 103 mmol/L (98-107); CREATININE 1.1 mg/dL (0.6-1.3); GLUCOSE 104 mg/dL (74-106); POTASSIUM 3.6 mmol/L (3.5-5.1); SODIUM SERUM 141 mmol/L (136-145); UREA NITROGEN, BLOOD 15 mg/dL (7-18)
[2021-04-12] MEDS ORDERED: AMOX500C2 PO (02:33)
--- NOTE | 2021-04-12 02:49 | NUR ---
IV removed. Catheter intact and site benign. Pressure and 4x4 applied to site. No bleeding noted.
--- NOTE | 2021-04-12 02:49 | NUR ---
Patient discharged to home in stable condition. Written and verbal after care instructions given. Patient verbalizes understanding of instruction.
[2021-04-12 02:50] VITALS: BP 136/77
[2021-04-12] MEDS ORDERED: AMOXICILLIN TRIHYDRATE 500 MG CAPSULE PO ONE (03:00)
== END 2021-04-12 02:51 | disposition home or self-care (01) ==
LOC: ER 01:16
DX: J18.9 Pneumonia, unspecified organism (principal); I10 Essential (primary) hypertension; K21.9 Gastro-esophageal reflux disease without esophagitis; Z79.899 Other long term (current) drug therapy
CPT/HCPCS: 36415; 71045; 80048; 84484; 85025; 93005; 96374; 96375; 99285; J1200; J1885; J2765